=== PATIENT | female | born 1970 | race Caucasian/White ===

== ENCOUNTER 2019-02-21 07:07 | Inpatient (IN) | payer MEDICAID ==
[~2019-02-21] VITALS: Ht 170.2 cm; Wt 68.6 kg
[~2019-02-21 07:07] MED LIST: AMLO10 PO; BIRTH CONTROL; CHLO25 PO; CIPR500 PO; CYAN1000 PO; CYAN500 PO; FOLI1 PO; IBUP400 PO; IBUP800 PO; IRON150C PO; LAXATIVE; MEDR10 PO; MULVIT PO; ONDA4 PO; POTCHL20ER PO; PROM25S PR; SULTRIDS PO
[2019-02-21 07:48] LABS: BASOPHILS ABSOLUTE AUTO 0.07 K/mm3 (0.00-0.23); BASOPHILS PERCENT AUTO 1 % (0-2); EOSINOPHILS ABSOLUTE AUTO 0.02 K/mm3 (0.00-0.68); EOSINOPHILS PERCENT AUTO 0 % (0-6); Hemoglobin 13.7 g/dL (11.5-16.0); IMMATURE GRAN ABSOLUTE AUTO 0.03 K/mm3 (0.00-0.10); IMMATURE GRAN PERCENT AUTO 0 % (0-1); LYMPHOCYTES ABSOLUTE AUTO 0.53 K/mm3 (0.84-5.20); LYMPHOCYTES PERCENT AUTO 7 % (21-46); MONOCYTES ABSOLUTE AUTO 0.77 K/mm3 (0.16-1.47); MONOCYTES PERCENT AUTO 10 % (4-13); Mean Corpuscular HGB 35.3 pg (26.0-34.0); Mean Corpuscular HGB Conc 34.3 g/dL (31.5-36.5); Mean Corpuscular Volume 103 fL (80-100); Mean Platelet Volume 12.8 fL (9.1-12.4); NEUTROPHILS ABSOLUTE AUTO 6.35 K/mm3 (1.96-9.15); NEUTROPHILS PERCENT AUTO 82 % (41-73); RDW Coefficient Variation 12.5 % (11.7-14.2); RDW Standard Deviation 47.7 fL (35.1-46.3); Red Blood Cell Count 3.88 M/mm3 (3.80-5.20); White Blood Cell Count 7.77 K/mm3 (4.00-11.30)
[2019-02-21 07:50] LABS: Platelet Count 43 K/mm3 (150-400)
[2019-02-21 08:30] LABS: Alanine Aminotransfer (ALT/SGP 109 U/L (12-78); Albumin, Blood 4.1 g/dL (3.4-5.0); Alk Phos 90 U/L (50-136); Anion Gap 9 mmol/L (6-16); Aspartate Aminotrans (AST/SGOT 287 U/L (12-37); Bilirubin, Total 1.4 mg/dL (0.1-1.0); Blood Urea Nitrogen 5 mg/dL (8-24); Bun/Creatinine Ratio 12.9 (12.0-20.0); CO2, Blood 25 mmol/L (21-32); Calcium, Blood 9.6 mg/dL (8.5-10.1); Chloride, Blood 98 mmol/L (98-108); Creatinine, Blood 0.39 mg/dL (0.40-1.00); Ethanol (Alcohol), Blood, Med <3 mg/dL; Globulin, Blood 4.1 g/dL (2.2-4.0); Glomerular Filtration Rate >60 (60-); Glucose, Blood 110 mg/dL (70-99); Potassium, Blood 3.7 mmol/L (3.5-5.5); Sodium, Blood 132 mmol/L (136-145); Total Protein, Blood 8.2 g/dL (6.4-8.2)
[2019-02-21 08:48] LABS: International Normalized Ratio 0.97; Prothrombin Time Results 10.3 Sec (9.7-11.5)
[2019-02-21 10:38] LABS: U Amphetamine Screen Not Detected; U Barbituate Screen Not Detected; U Benzodiazapine Screen Not Detected; U Buprenorphine Screen Not Detected; U Cannabinoids Screen Not Detected; U Cocaine Screen Not Detected; U Methadone Screen Not Detected; U Methamphetamine Screen Not Detected; U Opiates Screen Not Detected; U Oxycodone Screen Not Detected; U Phencyclidine Screen Not Detected; U Propoxyphene Screen Not Detected
[2019-02-21] MEDS ORDERED: Hair, Skin & N1 EACH PO (11:25)
[2019-02-21] MEDS ORDERED: IRON150C PO (11:25)
[2019-02-21] MEDS ORDERED: Vitamin C100 M1 PO (11:25)
--- NOTE | 2019-02-21 12:03 | NUR ---
ARRIVAL TO ICU 1115 - PT ARRIVES TO ICU AT THIS TIME FROM ED. SHE IS A/O X PERSON AND PLACE BUT NOT TO TIME. AMBULATED UNSTEADILY FROM STRETCHER TO BED. CURRENTLY HAS TREMORS IN ARMS AND IS SHAKY WHEN STANDING. CIWA 10. DENIES NAUSEA OR HALLUCINATIONS AT THIS TIME. C/O HEADACHE 04/24. PT GIVEN ATIVAN 1 MG GIVEN PRIOR TO ARRIVAL TO ICU. TEMP 100.0. BP STABLE. NSR, HR 80-90S. MIV NS INFUSION STARTED AT 200 ML/HR PER ORDER. PT WANTING TO SLEEP. BED ALARM ON AND CALL LIGHT WITHIN REACH. WILL CONTINUE TO MONITOR.
--- NOTE | 2019-02-21 16:04 | NUR ---
REASSESSMENT PT SLEEPING AND APPEARS COMFORTABLE. BOYFRIEND AT BEDSIDE. VSS. NSR, HR 70S AND BP STABLE. SEIZURE PADS IN PLACE ON BED. LIGHTS DIM IN ROOM SINCE PT HAS HEADACHE. CIWA 10. WILL CONTINUE TO MONITOR.
--- NOTE | 2019-02-21 17:48 | NUR ---
SHIFT SUMMARY PT ARRIVED IN ICU AT 1115. SINCE THEN, PT HAS BEEN SLEEPING EXCEPT WHEN VISITORS ARE IN ROOM. CIWA HAS BEEN 10 ENTIRE SHIFT. NO ATIVAN GIVEN THIS AFTERNOON. STATES HEADACHE HAS IMPROVED SOME. MIV NS INFUSED AT 100 ML/HR PER ORDER. PT NEEDS ASSISTANCE WHEN UP TO COMMODE. DENIES NAUSEA. VSS. PT VERBALIZED SHE AGREES TO DETOX FROM ALCOHOL. WILL GIVE BEDSIDE, HANDOFF REPORT TO NOC RN.
--- NOTE | 2019-02-21 19:15 | NUR ---
ASSUMED CARE ASSUMED CARE OF PATIENT. SLEEPING WHEN UNDISTURBED. ROUSES EASILY TO VERBAL STIMULI. ALERT AND ORIENTED EXCEPT TO DAY OF MONTH AND TIME OF DAY. CALM AND COOPERATIVE. FLAT AFFECT NOTED. SLOW VERBAL RESPONSE, BUT SPEECH IS CLEAR. MILD UPPER EXTREMITITY TREMORS NOTED. REPOSTIONS SELF IN BED WITHOUT DIFFICULTY AND UP TO BSC WITH STAND-BY ASSIST. DENIES C/O PAIN OR DISCOMFORT AT THIS TIME. MONITOR SHOWS NSR, RATE 70s. BP STABLE. REMAINS ON RA. VOIDING WITHOUT DIFFICULTY. DENIES C/O NAUSEA. NS INFUSING @ 200CC/HR PER ORDER. SEE SHIFT ASSESSMENT FOR FULL ASSESSMENT.
[2019-02-22 03:42] LABS: Alanine Aminotransfer (ALT/SGP 85 U/L (12-78); Albumin, Blood 3.9 g/dL (3.4-5.0); Albumin/Globulin Ratio 1.1 (0.8-1.8); Alk Phos 82 U/L (50-136); Anion Gap 9 mmol/L (6-16); Aspartate Aminotrans (AST/SGOT 158 U/L (12-37); Bilirubin, Total 1.3 mg/dL (0.1-1.0); Blood Urea Nitrogen 4 mg/dL (8-24); Bun/Creatinine Ratio 9.2 (12.0-20.0); CO2, Blood 28 mmol/L (21-32); Calcium, Blood 9.2 mg/dL (8.5-10.1); Chloride, Blood 102 mmol/L (98-108); Creatinine, Blood 0.43 mg/dL (0.40-1.00); Globulin, Blood 3.6 g/dL (2.2-4.0); Glomerular Filtration Rate >60 (60-); Glucose, Blood 90 mg/dL (70-99); Potassium, Blood 2.7 mmol/L (3.5-5.5); Sodium, Blood 139 mmol/L (136-145); Total Protein, Blood 7.5 g/dL (6.4-8.2)
--- NOTE | 2019-02-22 06:16 | NUR ---
SHIFT SUMMARY NO ACUTE CHANGES DURING NOC. PT SLEPT INTERMITTENTLY. CIWA SCORE BETWEEN 6-9. DENIES C/O HEADACHE OR OTHER DISCOMFORT. VSS. REMAINS ON RA. VOIDING WITHOUT DIFFICULTY. UP TO BSC WITH STAND-BY ASSIST WITHOUT DIFFICULTY. WILL REPORT TO DAY SHIFT RN WHEN AVAILABLE.
--- NOTE | 2019-02-22 07:49 | NUR ---
ASSUMED CARE PT. ALERT THIS AM, ORIENTED TO LOCATION, AND EVENT. COOPERATIVE WITH CARE AT THIS TIME. MINIMAL TREMORS NOTED. NEEDS STAND BY ASSIST. PT IMPULSIVE AT TIMES WITH QUICK MOVEMENTS, SHAKEY WHEN STANDING. PT. DENIES PAIN THIS AM. CURRENTLY SALINE LOCKED. PT. VSS THIS AM. AFEBRILE. CURRENTLY ON RA. NADN. CALL LIGHT IN REACH. REFRESHMENTS AT BEDSIDE. BED IN LOW POSITION WITH BED ALARM ON.
--- NOTE | 2019-02-22 11:18 | NUR ---
REPORT TO MEDICAL FLOOR RN. PT.TRANSFERRED TO ROOM 301.ABLE TO STAND AND TRANSFER SELF TO WHEELCHAIR. PT. BOYFRIEND AT BEDSIDE. ALL BELONGINGS TAKEN TO ROOM WITH PT.
--- NOTE | 2019-02-22 11:54 | NUR ---
PT TRANSFERED PT TRANSFERED AT 1110. PT IN STABLE CONDITION. PT & FAMILY ORIENTED TO ROOM. CASTRO PROVIDED & SECOND BAG OF IV POTASSIUM STARTED. WILL CONTINUE TO MONITOR.
--- NOTE | 2019-02-22 17:20 | NUR ---
SHIFT SUMMARY PT IN STABLE CONDITION WITH VSS. PT AMBULATING WITHIN ROOM INDEPENDENTLY. PT STATES SHE FEELS SHE IS GETTING STRONGER. NO OTHER CHANGES IN ASSESSMENT AT THIS TIME. CIWA'S DC'ED. PT DENIES PAIN & OTHER NEEDS AT THIS TIME. WILL CONTINUE TO MONITOR UNTIL TURNOVER IS COMPLETE.
--- NOTE | 2019-02-23 07:14 | NUR ---
SHIFT SUMMARY PT A/O INDEPENDENT IN ROOM. NO C/O PAIN. WORE SCD'S. CALL LIGHT IN REACH.
--- NOTE | 2019-02-23 11:18 | NUR ---
PT DISCHARGED PT DISCHARGED IN STABLE CONDITION & WITH VSS. PT EDUCATED ON DC INSTRUCTIONS & SENT WITH PT. PT REFUSED WHEELCHAIR & WALKED OUT OF FACILITY WITH HER BOYFRIEND. TO BE DRIVEN HOME BY HER BOYFRIEND. PT GIVEN INFO ON [employer] WITH DC.
== END 2019-02-23 11:09 | disposition home or self-care (01) | DRG 897 ==
LOC: ER 07:07 → ICUW 09:49 → MEDS 11:15 → ICUW 11:20 → MEDS 02-22 11:18 → ENPENDDIS 02-23 10:30 → MEDS 02-23 11:09
PROVIDERS: Emergency Medicine; ADMIT Hospitalist
DX: F10.231 Alcohol dependence with withdrawal delirium (principal); E87.1 Hypo-osmolality and hyponatremia; D69.6 Thrombocytopenia, unspecified; E87.6 Hypokalemia; F17.210 Nicotine dependence, cigarettes, uncomplicated; I10 Essential (primary) hypertension
CPT/HCPCS: 36415; 70450; 80053; 83735; 84132; 85025; 85610; 93005; 93010; 96365; 96366; 96375; 96376; 99285-25; G0480; J1650; J2060; J3411; J3475; J3480; J7030; J7042

== ENCOUNTER 2019-10-22 09:01 | Emergency (ER) | payer OTHER ==
[~2019-10-22] VITALS: Ht 175.3 cm; Wt 83.9 kg
[~2019-10-22 09:01] MED LIST changes: +Hair, Skin & N1 EACH PO; +Vitamin C100 M1 PO
[2019-10-22 10:21] LABS: BASOPHILS ABSOLUTE AUTO 0.08 K/mm3 (0.00-0.23); BASOPHILS PERCENT AUTO 2 % (0-2); EOSINOPHILS ABSOLUTE AUTO 0.09 K/mm3 (0.00-0.68); EOSINOPHILS PERCENT AUTO 2 % (0-6); Hematocrit 36.1 % (33.0-51.0); Hemoglobin 12.2 g/dL (11.5-16.0); IMMATURE GRAN ABSOLUTE AUTO 0.01 K/mm3 (0.00-0.10); IMMATURE GRAN PERCENT AUTO 0 % (0-1); LYMPHOCYTES ABSOLUTE AUTO 1.03 K/mm3 (0.84-5.20); LYMPHOCYTES PERCENT AUTO 22 % (21-46); MONOCYTES ABSOLUTE AUTO 0.58 K/mm3 (0.16-1.47); MONOCYTES PERCENT AUTO 12 % (4-13); Mean Corpuscular HGB 34.3 pg (26.0-34.0); Mean Corpuscular HGB Conc 33.8 g/dL (31.5-36.5); Mean Corpuscular Volume 101 fL (80-100); Mean Platelet Volume 10.6 fL (9.1-12.4); NEUTROPHILS ABSOLUTE AUTO 2.99 K/mm3 (1.96-9.15); NEUTROPHILS PERCENT AUTO 63 % (41-73); Platelet Count 76 K/mm3 (150-400); RDW Coefficient Variation 13.9 % (11.7-14.2); RDW Standard Deviation 51.8 fL (35.1-46.3); Red Blood Cell Count 3.56 M/mm3 (3.80-5.20); White Blood Cell Count 4.78 K/mm3 (4.00-11.30)
[2019-10-22 10:41] LABS: Alanine Aminotransfer (ALT/SGP 79 U/L (12-78); Albumin, Blood 4.3 g/dL (3.4-5.0); Albumin/Globulin Ratio 1.1 (0.8-1.8); Alk Phos 107 U/L (50-136); Anion Gap 8 mmol/L (6-16); Aspartate Aminotrans (AST/SGOT 189 U/L (12-37); Bilirubin, Total 0.3 mg/dL (0.1-1.0); Blood Urea Nitrogen 6 mg/dL (8-24); Bun/Creatinine Ratio 13.4 (12.0-20.0); CO2, Blood 28 mmol/L (21-32); Calcium, Blood 8.7 mg/dL (8.5-10.1); Chloride, Blood 102 mmol/L (98-108); Creatinine, Blood 0.45 mg/dL (0.40-1.00); Globulin, Blood 3.8 g/dL (2.2-4.0); Glomerular Filtration Rate >60 (60-); Glucose, Blood 91 mg/dL (70-99); Potassium, Blood 4.1 mmol/L (3.5-5.5); Sodium, Blood 138 mmol/L (136-145); Total Protein, Blood 8.1 g/dL (6.4-8.2)
[2019-10-22 10:44] LABS: Ethanol (Alcohol), Blood, Med 461 mg/dL
[2019-10-22] MEDS ORDERED: Ativan1 MG SL (11:33)
== END 2019-10-22 11:49 | disposition home or self-care (01) ==
LOC: ER 09:01
PROVIDERS: Emergency Medicine
DX: S01.81XA Laceration without foreign body of other part of head, initial encounter (principal); S00.12XA Contusion of left eyelid and periocular area, initial encounter; F10.129 Alcohol abuse with intoxication, unspecified; F17.210 Nicotine dependence, cigarettes, uncomplicated; Z23 Encounter for immunization; Z88.0 Allergy status to penicillin; W22.8XXA Striking against or struck by other objects, initial encounter
CPT/HCPCS: 36415; 70450; 70480; 80053; 85025; 90471; 90714; 93005; 93010; 99284-25; G0480

== ENCOUNTER 2020-04-13 04:58 | Emergency (ER) | payer OTHER ==
[~2020-04-13] VITALS: Ht 170.2 cm; Wt 79.4 kg
[~2020-04-13 04:58] MED LIST changes: +Ativan1 MG SL
== END 2020-04-13 06:25 | disposition home or self-care (01) ==
LOC: ER 04:58
DX: S09.90XA Unspecified injury of head, initial encounter (principal); F10.129 Alcohol abuse with intoxication, unspecified; I10 Essential (primary) hypertension; F17.210 Nicotine dependence, cigarettes, uncomplicated; Z88.0 Allergy status to penicillin; Z79.899 Other long term (current) drug therapy; W18.30XA Fall on same level, unspecified, initial encounter
CPT/HCPCS: 36415; 70450; 72125; 99284-25; G0480

== ENCOUNTER 2020-04-26 13:59 | Emergency (ER) | payer OTHER ==
[~2020-04-26] VITALS: Ht 170.2 cm; Wt 72.6 kg
[2020-04-26] MEDS ORDERED: LISI20 PO (14:49)
[2020-04-26] MEDS ORDERED: POTA8 (14:50)
[2020-04-26] MEDS ORDERED: CHLO25 PO (15:17)
== END 2020-04-26 15:49 | disposition home or self-care (01) ==
LOC: ER 13:59
DX: F10.10 Alcohol abuse, uncomplicated (principal); I10 Essential (primary) hypertension; Z88.0 Allergy status to penicillin; Z79.899 Other long term (current) drug therapy; F17.210 Nicotine dependence, cigarettes, uncomplicated
CPT/HCPCS: 96360; 99283-25; A9270-GY; J7030

== ENCOUNTER 2020-11-29 00:08 | Emergency (ER) | payer OTHER ==
[~2020-11-29] VITALS: Ht 170.2 cm; Wt 81.7 kg
[~2020-11-29 00:08] MED LIST changes: +LISI20 PO; +POTA8
[2020-11-29 00:34] LABS: BASOPHILS ABSOLUTE AUTO 0.03 K/mm3 (0.00-0.23); BASOPHILS PERCENT AUTO 0 % (0-2); EOSINOPHILS ABSOLUTE AUTO 0.02 K/mm3 (0.00-0.68); EOSINOPHILS PERCENT AUTO 0 % (0-6); Hematocrit 37.2 % (33.0-51.0); Hemoglobin 13.2 g/dL (11.5-16.0); IMMATURE GRAN ABSOLUTE AUTO 0.06 K/mm3 (0.00-0.10); IMMATURE GRAN PERCENT AUTO 1 % (0-1); LYMPHOCYTES ABSOLUTE AUTO 1.11 K/mm3 (0.84-5.20); LYMPHOCYTES PERCENT AUTO 10 % (21-46); MONOCYTES ABSOLUTE AUTO 0.83 K/mm3 (0.16-1.47); MONOCYTES PERCENT AUTO 7 % (4-13); Mean Corpuscular HGB 31.5 pg (26.0-34.0); Mean Corpuscular HGB Conc 35.5 g/dL (31.5-36.5); Mean Corpuscular Volume 89 fL (80-100); NEUTROPHILS ABSOLUTE AUTO 9.59 K/mm3 (1.96-9.15); NEUTROPHILS PERCENT AUTO 82 % (41-73); Platelet Count 85 K/mm3 (150-400); RDW Coefficient Variation 13.2 % (11.7-14.2); RDW Standard Deviation 43.2 fL (35.1-46.3); Red Blood Cell Count 4.19 M/mm3 (3.80-5.20); White Blood Cell Count 11.64 K/mm3 (4.00-11.30)
[2020-11-29 00:55] LABS: Alanine Aminotransfer (ALT/SGP 38 U/L (12-78); Albumin, Blood 4.2 g/dL (3.4-5.0); Albumin/Globulin Ratio 1.3 (0.8-1.8); Alk Phos 141 U/L (50-136); Anion Gap 17 mmol/L (6-16); Aspartate Aminotrans (AST/SGOT 86 U/L (12-37); Bilirubin, Total 0.9 mg/dL (0.1-1.0); Blood Urea Nitrogen 9 mg/dL (8-24); Bun/Creatinine Ratio 18.9 (12.0-20.0); CO2, Blood 26 mmol/L (21-32); Calcium, Blood 8.9 mg/dL (8.5-10.1); Chloride, Blood 81 mmol/L (98-108); Creatinine, Blood 0.48 mg/dL (0.40-1.00); Globulin, Blood 3.3 g/dL (2.2-4.0); Glomerular Filtration Rate >60 (60-); Glucose, Blood 85 mg/dL (70-99); Potassium, Blood 3.2 mmol/L (3.5-5.5); Sodium, Blood 124 mmol/L (136-145); Total Protein, Blood 7.5 g/dL (6.4-8.2)
[2020-11-29 03:30] LABS: Ethanol (Alcohol), Blood, Med 182 mg/dL
[2020-11-29] MEDS ORDERED: ONDA4ODT MM (03:45)
[2021-02-14] MEDS ORDERED: VITAMIN D5000 UNIT PO (09:53)
[2021-02-14] MEDS ORDERED: MULTIPLE VITAM1 EACH PO (09:53)
[2021-02-14] MEDS ORDERED: FOLI1 PO (09:54)
[2021-02-14] MEDS ORDERED: AMLO10 PO (09:54)
== END 2020-11-29 05:05 | disposition home or self-care (01) ==
LOC: ER 00:08
PROVIDERS: Emergency Medicine
DX: F10.20 Alcohol dependence, uncomplicated (principal); E87.1 Hypo-osmolality and hyponatremia; R11.2 Nausea with vomiting, unspecified; I10 Essential (primary) hypertension; F17.210 Nicotine dependence, cigarettes, uncomplicated; Z79.899 Other long term (current) drug therapy; Z88.0 Allergy status to penicillin
CPT/HCPCS: 80053; 85025; 93005; 93010; 96374; 96376; 99285-25; A9270; G0480; J2405; J7030

== ENCOUNTER 2021-02-21 06:38 | Day surgery (SDC) | payer OTHER ==
[~2021-02-21] VITALS: Ht 170.2 cm; Wt 82.8 kg
[~2021-02-21 06:38] MED LIST changes: +MULTIPLE VITAM1 EACH PO; +ONDA4ODT MM; +VITAMIN D5000 UNIT PO
[2021-02-21] MEDS ORDERED: LISI20 PO (07:49)
[2021-02-21] MEDS ORDERED: PRESERVISION A1 EAC1 PO (07:49)
--- NOTE | 2021-02-21 09:07 | NUR ---
02/21/21 0907 Amanda Brown 0.15ML OF EPI 1MG/ML ADDED TO 30ML OF BUPIVICAINE 0.5% TO FORM A SOLUTION OF BUPIVICAINE 0.5% WITH EPI 1:200,000.
== END 2021-02-21 12:25 | disposition home or self-care (01) ==
LOC: ORSCSDS 06:38
PROVIDERS: Orthopaedic Surgery
PROC: 0PSJ04Z Reposition Left Radius with Internal Fixation Device, Open Approach (ICD-10-PCS; principal; 2021-02-21 08:15)
DX: S52.572P Other intraarticular fracture of lower end of left radius, subsequent encounter for closed fracture with malunion (principal); Z87.891 Personal history of nicotine dependence; G40.909 Epilepsy, unspecified, not intractable, without status epilepticus; I10 Essential (primary) hypertension
CPT/HCPCS: C1713; J0171; J0690; J1100; J1885; J2250; J2405; J2704; J3010; J7120

== ENCOUNTER 2021-06-11 20:47 | Emergency (ER) | payer OTHER ==
[~2021-06-11] VITALS: Ht 170.2 cm; Wt 81.7 kg
[~2021-06-11 20:47] MED LIST changes: +PRESERVISION A1 EAC1 PO
== END 2021-06-11 21:39 | disposition left against medical advice (07) ==
LOC: ER 20:47
DX: R05 Cough (principal); Z53.21 Procedure and treatment not carried out due to patient leaving prior to being seen by health care provider; R68.83 Chills (without fever); R53.1 Weakness
CPT/HCPCS: 99282

== ENCOUNTER 2021-06-28 15:07 | Emergency (ER) | payer OTHER ==
[~2021-06-28] VITALS: Ht 170.2 cm; Wt 81.7 kg
[2021-06-28 15:56] LABS: BASOPHILS ABSOLUTE AUTO 0.05 K/mm3 (0.00-0.23); BASOPHILS PERCENT AUTO 1 % (0-2); EOSINOPHILS ABSOLUTE AUTO 0.01 K/mm3 (0.00-0.68); EOSINOPHILS PERCENT AUTO 0 % (0-6); Hematocrit 42.4 % (33.0-51.0); Hemoglobin 14.9 g/dL (11.5-16.0); IMMATURE GRAN ABSOLUTE AUTO 0.03 K/mm3 (0.00-0.10); IMMATURE GRAN PERCENT AUTO 0 % (0-1); LYMPHOCYTES PERCENT AUTO 15 % (21-46); MONOCYTES ABSOLUTE AUTO 0.82 K/mm3 (0.16-1.47); MONOCYTES PERCENT AUTO 9 % (4-13); Mean Corpuscular HGB 31.7 pg (26.0-34.0); Mean Corpuscular HGB Conc 35.1 g/dL (31.5-36.5); Mean Corpuscular Volume 90 fL (80-100); Mean Platelet Volume 10.2 fL (9.1-12.4); NEUTROPHILS ABSOLUTE AUTO 6.73 K/mm3 (1.96-9.15); NEUTROPHILS PERCENT AUTO 75 % (41-73); Platelet Count 132 K/mm3 (150-400); RDW Coefficient Variation 13.2 % (11.7-14.2); RDW Standard Deviation 44.1 fL (35.1-46.3); White Blood Cell Count 8.94 K/mm3 (4.00-11.30)
[2021-06-28 16:31] LABS: Alanine Aminotransfer (ALT/SGP 38 U/L (12-78); Albumin, Blood 4.1 g/dL (3.4-5.0); Albumin/Globulin Ratio 0.9 (0.8-1.8); Alk Phos 99 U/L (50-136); Anion Gap 18 mmol/L (6-16); Aspartate Aminotrans (AST/SGOT 68 U/L (12-37); Bilirubin, Total 0.9 mg/dL (0.1-1.0); Blood Urea Nitrogen 25 mg/dL (8-24); Bun/Creatinine Ratio 37.7 (12.0-20.0); CO2, Blood 21 mmol/L (21-32); Calcium, Blood 8.9 mg/dL (8.5-10.1); Chloride, Blood 88 mmol/L (98-108); Creatinine, Blood 0.66 mg/dL (0.40-1.00); Globulin, Blood 4.5 g/dL (2.2-4.0); Glomerular Filtration Rate >60 (60-); Glucose, Blood 95 mg/dL (70-99); Potassium, Blood 3.8 mmol/L (3.5-5.5); Sodium, Blood 127 mmol/L (136-145); Total Protein, Blood 8.6 g/dL (6.4-8.2)
[2021-06-28] MEDS ORDERED: ONDA4ODT MM (19:22)
[2021-06-28] MEDS ORDERED: CHLO25 PO (19:22)
== END 2021-06-28 19:35 | disposition home or self-care (01) ==
LOC: ER 15:07
PROVIDERS: Physician Assistant
DX: F10.139 Alcohol abuse with withdrawal, unspecified (principal); R11.2 Nausea with vomiting, unspecified; E86.0 Dehydration; F17.210 Nicotine dependence, cigarettes, uncomplicated; I10 Essential (primary) hypertension
CPT/HCPCS: 36415; 80053; 83690; 85025; 96361; 96374; 96375; 99284-25; A9270; G0480; J2060; J2405; J7030

== ENCOUNTER → 2022-07-09 | Outpatient (CLI) | payer OTHER ==
[2022-07-09 13:40] LABS: BASOPHILS ABSOLUTE AUTO 0.04 K/mm3 (0.00-0.23); BASOPHILS PERCENT AUTO 1 % (0-2); EOSINOPHILS ABSOLUTE AUTO 0.03 K/mm3 (0.00-0.68); EOSINOPHILS PERCENT AUTO 1 % (0-6); Hematocrit 40.8 % (33.0-51.0); Hemoglobin 14.2 g/dL (11.5-16.0); IMMATURE GRAN ABSOLUTE AUTO 0.02 K/mm3 (0.00-0.10); IMMATURE GRAN PERCENT AUTO 0 % (0-1); LYMPHOCYTES ABSOLUTE AUTO 1.94 K/mm3 (0.84-5.20); LYMPHOCYTES PERCENT AUTO 35 % (21-46); MONOCYTES ABSOLUTE AUTO 0.33 K/mm3 (0.16-1.47); MONOCYTES PERCENT AUTO 6 % (4-13); Mean Corpuscular HGB 33.1 pg (26.0-34.0); Mean Corpuscular HGB Conc 34.8 g/dL (31.5-36.5); Mean Corpuscular Volume 95 fL (80-100); NEUTROPHILS ABSOLUTE AUTO 3.23 K/mm3 (1.96-9.15); NEUTROPHILS PERCENT AUTO 58 % (41-73); RDW Coefficient Variation 13.3 % (11.7-14.2); RDW Standard Deviation 46.7 fL (35.1-46.3); Red Blood Cell Count 4.29 M/mm3 (3.80-5.20); White Blood Cell Count 5.59 K/mm3 (4.00-11.30)
[2022-07-09 13:52] LABS: Albumin/Globulin Ratio 1.1 (0.8-1.8); Bilirubin, Total 0.5 mg/dL (0.1-1.0); Bun/Creatinine Ratio 10.6 (12.0-20.0); Calcium, Blood 8.8 mg/dL (8.5-10.1); Creatinine, Blood 0.66 mg/dL (0.40-1.00); Globulin, Blood 3.8 g/dL (2.2-4.0); Potassium, Blood 3.7 mmol/L (3.5-5.5); Total Protein, Blood 7.8 g/dL (6.4-8.2)
[2022-07-09 14:46] LABS: Mean Platelet Volume 10.4 fL (9.1-12.4); Platelet Count 104 K/mm3 (150-400)
== END | disposition home or self-care (01) ==
LOC: LAB SHORT 13:33
PROVIDERS: Physician Assistant
DX: R35.81 Nocturnal polyuria (principal); R11.2 Nausea with vomiting, unspecified; R19.7 Diarrhea, unspecified
CPT/HCPCS: 80053; 85025; 87077; 87086; 87186

== ENCOUNTER 2022-08-25 23:40 | Observation (INO) | payer OTHER ==
[~2022-08-25] VITALS: Ht 170.2 cm; Wt 79.3 kg
[2022-08-25] MEDS ORDERED: Naltrexone HCl50 MG PO (23:55)
[2022-08-26 00:17] LABS: BASOPHILS ABSOLUTE AUTO 0.04 K/mm3 (0.00-0.23); BASOPHILS PERCENT AUTO 0 % (0-2); EOSINOPHILS PERCENT AUTO 1 % (0-6); Hemoglobin 13.4 g/dL (11.5-16.0); IMMATURE GRAN ABSOLUTE AUTO 0.06 K/mm3 (0.00-0.10); IMMATURE GRAN PERCENT AUTO 1 % (0-1); LYMPHOCYTES ABSOLUTE AUTO 2.32 K/mm3 (0.84-5.20); LYMPHOCYTES PERCENT AUTO 26 % (21-46); MONOCYTES ABSOLUTE AUTO 0.75 K/mm3 (0.16-1.47); MONOCYTES PERCENT AUTO 8 % (4-13); Mean Corpuscular HGB 33.6 pg (26.0-34.0); Mean Corpuscular HGB Conc 35.3 g/dL (31.5-36.5); Mean Corpuscular Volume 95 fL (80-100); Mean Platelet Volume 10.6 fL (9.1-12.4); NEUTROPHILS PERCENT AUTO 64 % (41-73); Platelet Count 123 K/mm3 (150-400); RDW Standard Deviation 42.1 fL (35.1-46.3); Red Blood Cell Count 3.99 M/mm3 (3.80-5.20); White Blood Cell Count 8.97 K/mm3 (4.00-11.30)
[2022-08-26 00:35] LABS: Albumin, Blood 3.9 g/dL (3.4-5.0); Albumin/Globulin Ratio 1.1 (0.8-1.8); Bilirubin, Total 0.7 mg/dL (0.1-1.0); Bun/Creatinine Ratio 17.6 (12.0-20.0); Calcium, Blood 9.3 mg/dL (8.5-10.1); Creatinine, Blood 0.51 mg/dL (0.40-1.00); Globulin, Blood 3.7 g/dL (2.2-4.0); Magnesium, Blood 1.9 mg/dL (1.6-2.4); Potassium, Blood 3.3 mmol/L (3.5-5.5); Total Protein, Blood 7.6 g/dL (6.4-8.2)
[2022-08-26 01:47] LABS: Base Excess Venous 0.5 mmol/L; Bicarbonate Venous 25.2 mmol/L (24.0-30.0); pH Blood Venous 7.45 (7.34-7.37)
[2022-08-26 05:31] LABS: BASOPHILS ABSOLUTE AUTO 0.03 K/mm3 (0.00-0.23); BASOPHILS PERCENT AUTO 0 % (0-2); EOSINOPHILS ABSOLUTE AUTO 0.04 K/mm3 (0.00-0.68); EOSINOPHILS PERCENT AUTO 0 % (0-6); Hematocrit 37.2 % (33.0-51.0); Hemoglobin 12.9 g/dL (11.5-16.0); IMMATURE GRAN ABSOLUTE AUTO 0.04 K/mm3 (0.00-0.10); IMMATURE GRAN PERCENT AUTO 0 % (0-1); LYMPHOCYTES ABSOLUTE AUTO 1.67 K/mm3 (0.84-5.20); LYMPHOCYTES PERCENT AUTO 18 % (21-46); MONOCYTES ABSOLUTE AUTO 0.64 K/mm3 (0.16-1.47); MONOCYTES PERCENT AUTO 7 % (4-13); Mean Corpuscular HGB 33.3 pg (26.0-34.0); Mean Corpuscular HGB Conc 34.7 g/dL (31.5-36.5); Mean Corpuscular Volume 96 fL (80-100); Mean Platelet Volume 10.5 fL (9.1-12.4); NEUTROPHILS ABSOLUTE AUTO 6.77 K/mm3 (1.96-9.15); NEUTROPHILS PERCENT AUTO 74 % (41-73); Platelet Count 116 K/mm3 (150-400); RDW Coefficient Variation 12.3 % (11.7-14.2); RDW Standard Deviation 43.4 fL (35.1-46.3); Red Blood Cell Count 3.87 M/mm3 (3.80-5.20); White Blood Cell Count 9.19 K/mm3 (4.00-11.30)
[2022-08-26 06:00] LABS: Albumin, Blood 3.7 g/dL (3.4-5.0); Albumin/Globulin Ratio 1.1 (0.8-1.8); Bilirubin, Total 0.7 mg/dL (0.1-1.0); Calcium, Blood 8.9 mg/dL (8.5-10.1); Creatinine, Blood 0.54 mg/dL (0.40-1.00); Globulin, Blood 3.5 g/dL (2.2-4.0); Potassium, Blood 3.1 mmol/L (3.5-5.5); Total Protein, Blood 7.2 g/dL (6.4-8.2)
--- NOTE | 2022-08-26 06:19 | NUR ---
SHIFT ASSESSMENT: PT. CAME IN OVERNIGHT FROM ED FOR ALCOHOL DETOX, UPON ASSESSMENT PT. SEEMS TO BE STABLE. VS ARE ALL WNL AND PT. IS NOT COMPLAINING OF ANY PAIN. PT. IS ON RA AND ALL OTHER ASSESSMENT FINDINGS ARE WNL. PT. RESTING IN BED WITH CALL LIGHT WITHIN REACH.
[2022-08-26 08:22] LABS: Bun/Creatinine Ratio 10.1 (12.0-20.0); Calcium, Blood 8.7 mg/dL (8.5-10.1); Creatinine, Blood 0.6 mg/dL (0.40-1.00); Potassium, Blood 3.4 mmol/L (3.5-5.5)
--- NOTE | 2022-08-26 10:39 | NUR ---
Am note Pt wakes easily to verbal stimuli; alert, oriented x4; calm and cooperative with care. CIWA 1, slight headache noted. Pt ind in room. Pt denies pain, chest pain/pressure, sob, nausea, dizziness and numb/tingling. Pt tele sinus 80's, bp stable. Ls clear t/o, spo2 >90% on ra. No serizures noted this am. Other vss. No other acute change snoted. Will continue to monitor.
[2022-08-26] MEDS ORDERED: B-1100 M1 PO (15:17)
--- NOTE | 2022-08-26 17:31 | NUR ---
Discharge Summary CIWA <8 t/o shift. No acute changes noted. Tele called with hr 150, checked on patient, pt reports coughing, notiifed Dr Alejandre, ok to continue with discharge. Pt and spouse educated on discharge instructions, follow up appointments and medications. Prescriptions sent to [facility]. Pt left on foot with spouse. Discharge instructions left in room, message left for patient to pickle sorter.
== END 2022-08-26 17:00 | disposition home or self-care (01) ==
LOC: ER 23:40 → PCU 08-26 03:58
PROVIDERS: Family Medicine Adult Medicine; Student in an Organized Health Care Education/Training Program; ADMIT Internal Medicine
DX: F10.139 Alcohol abuse with withdrawal, unspecified (principal); G40.89 Other seizures; Y90.0 Blood alcohol level of less than 20 mg/100 ml; I10 Essential (primary) hypertension; E87.6 Hypokalemia; D69.6 Thrombocytopenia, unspecified; Z88.0 Allergy status to penicillin
CPT/HCPCS: 36415; 80048; 80053; 82803; 83735; 85025; 93005; 93010; 96365; 96372; 99285-25; A9270; G0378; G0480; J1650; J3411; J3480; J7030; J7050

== ENCOUNTER 2023-06-04 22:25 | Emergency (ER) | payer OTHER ==
[~2023-06-04] VITALS: Ht 170.2 cm; Wt 81.7 kg
[~2023-06-04 22:25] MED LIST changes: +B-1100 M1 PO; +Naltrexone HCl50 MG PO
[2023-06-04 23:08] LABS: BASOPHILS ABSOLUTE AUTO 0.01 K/mm3 (0.00-0.23); BASOPHILS PERCENT AUTO 0 % (0-2); EOSINOPHILS ABSOLUTE AUTO 0.09 K/mm3 (0.00-0.68); EOSINOPHILS PERCENT AUTO 2 % (0-6); Hematocrit 33.1 % (33.0-51.0); IMMATURE GRAN ABSOLUTE AUTO 0.03 K/mm3 (0.00-0.10); IMMATURE GRAN PERCENT AUTO 1 % (0-1); LYMPHOCYTES ABSOLUTE AUTO 0.81 K/mm3 (0.84-5.20); LYMPHOCYTES PERCENT AUTO 16 % (21-46); MONOCYTES ABSOLUTE AUTO 0.78 K/mm3 (0.16-1.47); MONOCYTES PERCENT AUTO 16 % (4-13); Mean Corpuscular HGB Conc 36.3 g/dL (31.5-36.5); Mean Corpuscular Volume 91 fL (80-100); Mean Platelet Volume 12.4 fL (9.1-12.4); NEUTROPHILS ABSOLUTE AUTO 3.31 K/mm3 (1.96-9.15); NEUTROPHILS PERCENT AUTO 66 % (41-73); Platelet Count 52 K/mm3 (150-400); RDW Coefficient Variation 13.3 % (11.7-14.2); RDW Standard Deviation 45.1 fL (35.1-46.3); Red Blood Cell Count 3.64 M/mm3 (3.80-5.20); White Blood Cell Count 5.03 K/mm3 (4.00-11.30)
[2023-06-04 23:23] LABS: Ethanol (Alcohol), Blood, Med <3 mg/dL
[2023-06-04 23:24] LABS: Alanine Aminotransfer (ALT/SGP 88 U/L (12-78); Albumin, Blood 3.7 g/dL (3.4-5.0); Albumin/Globulin Ratio 1.1 (0.8-1.8); Alk Phos 102 U/L (50-136); Anion Gap 12 mmol/L (6-16); Aspartate Aminotrans (AST/SGOT 130 U/L (12-37); Bilirubin, Total 0.6 mg/dL (0.1-1.0); Blood Urea Nitrogen 8 mg/dL (8-24); Bun/Creatinine Ratio 16.8 (12.0-20.0); CO2, Blood 28 mmol/L (21-32); Chloride, Blood 85 mmol/L (98-108); Creatinine, Blood 0.48 mg/dL (0.40-1.00); Globulin, Blood 3.4 g/dL (2.2-4.0); Glomerular Filtration Rate 112 (60-); Glucose, Blood 138 mg/dL (70-99); Potassium, Blood 3.2 mmol/L (3.5-5.5); Sodium, Blood 125 mmol/L (136-145); Total Protein, Blood 7.1 g/dL (6.4-8.2)
[2023-06-05 02:15] VITALS: BP 148/116
== END 2023-06-05 02:15 | disposition home or self-care (01) ==
LOC: ER 22:25
PROVIDERS: Emergency Medicine
DX: R56.9 Unspecified convulsions (principal); E87.1 Hypo-osmolality and hyponatremia; D69.6 Thrombocytopenia, unspecified; Z88.0 Allergy status to penicillin; Z79.899 Other long term (current) drug therapy; I10 Essential (primary) hypertension; Z87.891 Personal history of nicotine dependence
CPT/HCPCS: 80053; 85025; 93005; 93010; 96360; 96361; 99284-25; A9270; G0480; J7030

== ENCOUNTER 2024-05-13 21:22 | Emergency (ER) | payer OTHER ==
[~2024-05-13] VITALS: Ht 170.2 cm; Wt 81.7 kg
[2024-05-13 22:16] VITALS: BP 131/93
[2024-05-13 22:38] LABS: BASOPHILS ABSOLUTE AUTO 0.07 K/mm3 (0.00-0.23); BASOPHILS PERCENT AUTO 1 % (0-2); EOSINOPHILS ABSOLUTE AUTO 0.09 K/mm3 (0.00-0.68); EOSINOPHILS PERCENT AUTO 2 % (0-6); Hematocrit 40.9 % (33.0-51.0); Hemoglobin 14.1 g/dL (11.5-16.0); IMMATURE GRAN ABSOLUTE AUTO 0.02 K/mm3 (0.00-0.10); IMMATURE GRAN PERCENT AUTO 0 % (0-1); LYMPHOCYTES ABSOLUTE AUTO 2.59 K/mm3 (0.84-5.20); LYMPHOCYTES PERCENT AUTO 46 % (21-46); MONOCYTES ABSOLUTE AUTO 0.47 K/mm3 (0.16-1.47); MONOCYTES PERCENT AUTO 8 % (4-13); Mean Corpuscular HGB Conc 34.5 g/dL (31.5-36.5); Mean Corpuscular Volume 96 fL (80-100); Mean Platelet Volume 9.6 fL (9.1-12.4); NEUTROPHILS ABSOLUTE AUTO 2.41 K/mm3 (1.96-9.15); NEUTROPHILS PERCENT AUTO 43 % (41-73); Platelet Count 147 K/mm3 (150-400); RDW Coefficient Variation 15.3 % (11.7-14.2); RDW Standard Deviation 54.2 fL (35.1-46.3); Red Blood Cell Count 4.27 M/mm3 (3.80-5.20); White Blood Cell Count 5.65 K/mm3 (4.00-11.30)
[2024-05-13 23:22] LABS: Albumin, Blood 3.9 g/dL (3.4-5.0); Albumin/Globulin Ratio 0.9 (0.8-1.8); Bilirubin, Total 0.3 mg/dL (0.1-1.0); Calcium, Blood 8.6 mg/dL (8.5-10.1); Creatinine, Blood 0.42 mg/dL (0.40-1.00); Globulin, Blood 4.2 g/dL (2.2-4.0); Potassium, Blood 3.7 mmol/L (3.5-5.5); Total Protein, Blood 8.1 g/dL (6.4-8.2)
[2024-05-14] MEDS ORDERED: GABA300 PO (00:09)
== END 2024-05-14 00:43 | disposition home or self-care (01) ==
LOC: ER 21:22
PROVIDERS: Student in an Organized Health Care Education/Training Program
DX: F10.229 Alcohol dependence with intoxication, unspecified (principal); I10 Essential (primary) hypertension; F17.200 Nicotine dependence, unspecified, uncomplicated; Z71.41 Alcohol abuse counseling and surveillance of alcoholic; Z79.899 Other long term (current) drug therapy; Z88.0 Allergy status to penicillin
CPT/HCPCS: 80053; 83690; 85025; 99285

== ENCOUNTER 2024-09-23 20:02 | Emergency (ER) | payer OTHER ==
[~2024-09-23] VITALS: Ht 170.2 cm; Wt 79.4 kg
[~2024-09-23 20:02] MED LIST changes: +AMLODIPINE BESYL5 MG PO; +ASPI81CH PO; +Acetaminophen650 M1 PO; +GABA300 PO
[2024-09-23 20:45] LABS: BASOPHILS ABSOLUTE AUTO 0.02 K/mm3 (0.00-0.23); BASOPHILS PERCENT AUTO 1 % (0-2); EOSINOPHILS ABSOLUTE AUTO 0.01 K/mm3 (0.00-0.68); EOSINOPHILS PERCENT AUTO 0 % (0-6); Hematocrit 36.7 % (33.0-51.0); Hemoglobin 13.3 g/dL (11.5-16.0); IMMATURE GRAN ABSOLUTE AUTO 0.02 K/mm3 (0.00-0.10); IMMATURE GRAN PERCENT AUTO 1 % (0-1); LYMPHOCYTES ABSOLUTE AUTO 0.73 K/mm3 (0.84-5.20); LYMPHOCYTES PERCENT AUTO 22 % (21-46); MONOCYTES ABSOLUTE AUTO 0.28 K/mm3 (0.16-1.47); MONOCYTES PERCENT AUTO 9 % (4-13); Mean Corpuscular HGB 32.7 pg (26.0-34.0); Mean Corpuscular HGB Conc 36.2 g/dL (31.5-36.5); Mean Corpuscular Volume 90 fL (80-100); Mean Platelet Volume 11.5 fL (9.1-12.4); NEUTROPHILS ABSOLUTE AUTO 2.24 K/mm3 (1.96-9.15); NEUTROPHILS PERCENT AUTO 68 % (41-73); Platelet Count 67 K/mm3 (150-400); RDW Coefficient Variation 13.4 % (11.7-14.2); RDW Standard Deviation 43.8 fL (35.1-46.3); Red Blood Cell Count 4.07 M/mm3 (3.80-5.20)
[2024-09-23 20:48] LABS: Source, Urine Clean Catch
[2024-09-23 20:54] LABS: Appearance, Urine Hazy (Clear); Bilirubin, Urine Neg (Neg); Blood, Urine 2+ (Neg); Color, Urine Yellow (P-Yellow); Glucose Qualitative, Urine Neg (Neg); Ketones, Urine 2+ (Neg); Leukocyte Esterase, Urine 2+ (Neg); Nitrite, Urine Neg (Neg); Protein, Urine 2+ (Neg); Specific Gravity, Urine 1.015 (1.003-1.022); Urobilinogen, Urine 3+ (Normal)
[2024-09-23] MEDS ORDERED: HYDHCL25 PO (20:59)
[2024-09-23 21:00] LABS: Bacteria Many /hpf; Red Blood Cells, Urine 0-2 /hpf (0-2); Squamous Epithelial Cells Mod /hpf (Few); Transitional Epithelial Cells Few /hpf (0-Rare)
[2024-09-23 21:01] LABS: Albumin, Blood 3.7 g/dL (3.4-5.0); Bilirubin, Total 2.3 mg/dL (0.1-1.0); Bun/Creatinine Ratio 9.2 (12.0-20.0); Calcium, Blood 10.2 mg/dL (8.5-10.1); Creatinine, Blood 0.65 mg/dL (0.40-1.00); Globulin, Blood 3.7 g/dL (2.2-4.0); Total Protein, Blood 7.4 g/dL (6.4-8.2)
[2024-09-23] MEDS ORDERED: Folic Acid 1 MG in NS 50 ML IV ONE (21:10)
[2024-09-23] MEDS ORDERED: Thiamine HCl 100 MG in NS 50 ML IV ONE (21:10)
[2024-09-23] MEDS ORDERED: NS 1,000 ML IV SCH (21:10)
[2024-09-23] MEDS ORDERED: Ondansetron HCl 2 MG / ML 2ML Vial IV ONE (21:10)
[2024-09-23 21:24] LABS: Phosphorus, Blood 1.9 mg/dL (2.5-4.9)
[2024-09-23 21:33] LABS: U Amphetamine Screen Not Detected; U Barbituate Screen Not Detected; U Benzodiazapine Screen Not Detected; U Buprenorphine Screen Not Detected; U Cannabinoids Screen Not Detected; U Cocaine Screen Not Detected; U Methadone Screen Not Detected; U Methamphetamine Screen Not Detected; U Opiates Screen Not Detected; U Oxycodone Screen Not Detected; U Phencyclidine Screen Not Detected
[2024-09-23] MEDS ORDERED: Droperidol 5 mg/2 ml Vial IV ONE (23:10)
[2024-09-23] MEDS ORDERED: Potassium Chloride 20 MEQ TabCR PO ONE (23:15)
[2024-09-23] MEDS ORDERED: Potassium Chl 20MEQ/Water100ML 100 ML IV ONE (23:15)
[2024-09-23] MEDS ORDERED: Sodium Phosphate 15 MM in Dextrose 5% 250 ML IV ONE (23:20)
[2024-09-24 01:55] LABS: Albumin, Blood 3.4 g/dL (3.4-5.0); Albumin/Globulin Ratio 1.1 (0.8-1.8); Bilirubin, Total 2.1 mg/dL (0.1-1.0); Calcium, Blood 9.1 mg/dL (8.5-10.1); Creatinine, Blood 0.71 mg/dL (0.40-1.00); Globulin, Blood 3.2 g/dL (2.2-4.0); Potassium, Blood 3.5 mmol/L (3.5-5.5); Total Protein, Blood 6.6 g/dL (6.4-8.2)
[2024-09-24] MEDS ORDERED: CHLO25 PO (02:26)
[2024-09-24 02:30] VITALS: BP 140/98
== END 2024-09-24 03:22 | disposition home or self-care (01) ==
LOC: ER 20:02
PROVIDERS: Student in an Organized Health Care Education/Training Program
DX: E87.6 Hypokalemia (principal); E87.1 Hypo-osmolality and hyponatremia; E83.39 Other disorders of phosphorus metabolism; R74.01 Elevation of levels of liver transaminase levels; F10.939 Alcohol use, unspecified with withdrawal, unspecified; I10 Essential (primary) hypertension; Z87.891 Personal history of nicotine dependence; Z88.0 Allergy status to penicillin; Z79.82 Long term (current) use of aspirin; Z79.899 Other long term (current) drug therapy
CPT/HCPCS: 80053; 80320; 81001; 83690; 83735; 84100; 84703; 85025; 87086; 87147; 93005; 93010; 96365; 96366; 96367; 96368; 96375; 99285-25; A9270; J1790; J2405; J3411; J3480; J7030; J7060

== ENCOUNTER 2025-01-24 12:27 | Observation (INO) | payer OTHER ==
[~2025-01-24] VITALS: Ht 170.2 cm; Wt 75.6 kg
[~2025-01-24 12:27] MED LIST changes: +HYDHCL25 PO
[2025-01-24 13:45] LABS: BASOPHILS ABSOLUTE AUTO 0.01 K/mm3 (0.00-0.23); BASOPHILS PERCENT AUTO 0 % (0-2); EOSINOPHILS ABSOLUTE AUTO 0.01 K/mm3 (0.00-0.68); EOSINOPHILS PERCENT AUTO 0 % (0-6); Hematocrit 38.1 % (33.0-51.0); Hemoglobin 13.8 g/dL (11.5-16.0); IMMATURE GRAN ABSOLUTE AUTO 0.02 K/mm3 (0.00-0.10); IMMATURE GRAN PERCENT AUTO 0 % (0-1); LYMPHOCYTES ABSOLUTE AUTO 0.53 K/mm3 (0.84-5.20); LYMPHOCYTES PERCENT AUTO 9 % (21-46); MONOCYTES ABSOLUTE AUTO 0.43 K/mm3 (0.16-1.47); MONOCYTES PERCENT AUTO 7 % (4-13); Mean Corpuscular HGB 32.5 pg (26.0-34.0); Mean Corpuscular HGB Conc 36.2 g/dL (31.5-36.5); Mean Corpuscular Volume 90 fL (80-100); Mean Platelet Volume 12.1 fL (9.1-12.4); NEUTROPHILS ABSOLUTE AUTO 5.06 K/mm3 (1.96-9.15); NEUTROPHILS PERCENT AUTO 84 % (41-73); RDW Coefficient Variation 13.9 % (11.7-14.2); RDW Standard Deviation 45.5 fL (35.1-46.3); Red Blood Cell Count 4.24 M/mm3 (3.80-5.20); White Blood Cell Count 6.06 K/mm3 (4.00-11.30)
[2025-01-24 13:50] LABS: Platelet Count 47 K/mm3 (150-400)
[2025-01-24 14:11] LABS: Albumin, Blood 4.1 g/dL (3.4-5.0); Albumin/Globulin Ratio 1.1 (0.8-1.8); Bilirubin, Total 1.2 mg/dL (0.1-1.0); Bun/Creatinine Ratio 9.8 (12.0-20.0); Calcium, Blood 9.5 mg/dL (8.5-10.1); Creatinine, Blood 0.81 mg/dL (0.40-1.00); Globulin, Blood 3.8 g/dL (2.2-4.0); Potassium, Blood 2.3 mmol/L (3.5-5.5); Total Protein, Blood 7.9 g/dL (6.4-8.2)
[2025-01-24] MEDS ORDERED: NS 1,000 ML IV SCH ×2 (14:35→16:10)
[2025-01-24] MEDS ORDERED: Thiamine HCl 100 MG Tab PO ONE (14:35)
[2025-01-24] MEDS ORDERED: Potassium Chloride 40 MEQ in NS 250 ML IV ONE (14:35)
[2025-01-24] MEDS ORDERED: Potassium Chloride 20 MEQ/15 ML UDC PO STA (16:04)
[2025-01-24] MEDS ORDERED: Ondansetron HCl 2 MG / ML 2ML Vial IV PRN (16:10)
[2025-01-24] MEDS ORDERED: LORazepam 2 MG/ML 1ML Injection IV PRN (16:10)
[2025-01-24] MEDS ORDERED: ChlordiazePOXIDE 25 MG Cap PO PRN (16:10)
[2025-01-24 17:36] LABS: Source, Urine Clean Catch
[2025-01-24 17:39] LABS: Appearance, Urine Hazy (Clear); Bilirubin, Urine Neg (Neg); Blood, Urine 1+ (Neg); Color, Urine Yellow (P-Yellow); Glucose Qualitative, Urine Neg (Neg); Ketones, Urine Neg (Neg); Leukocyte Esterase, Urine 2+ (Neg); Nitrite, Urine Neg (Neg); Protein, Urine 2+ (Neg); Urobilinogen, Urine 1+ (Normal)
[2025-01-24 17:48] LABS: Bacteria Few /hpf; Squamous Epithelial Cells Many /hpf (Few); Transitional Epithelial Cells Rare /hpf (0-Rare)
[2025-01-24] MEDS ORDERED: FLU VACC TS2024-25(6MOS UP)/PF 45 MCG/0.5 ML SYRINGE IM ONE (18:00)
[2025-01-24 18:03] VITALS: BP 124/91
--- NOTE | 2025-01-24 18:37 | NUR ---
SHIFT SUMMARY PT ADMITTED AT 1800. ORIENTED TO THE ROOM. CIWA COMPLETED. ADMISSION COMPLETE. PT EATING AND DRINKING WELL. AOX4. SBA TO THE BR. REPOSITIONS SELF IN BED. TELE IN PLACE. CALL LIGHT WITHIN REACH, BED LOCKED AND IN THE LOWEST POSITION. WILL REPORT TO ONCOMING NURSE.
[2025-01-24 19:06] LABS: Bun/Creatinine Ratio 11.8 (12.0-20.0); Calcium, Blood 9.3 mg/dL (8.5-10.1); Creatinine, Blood 0.76 mg/dL (0.40-1.00); Potassium, Blood 3.3 mmol/L (3.5-5.5)
[2025-01-24 19:29] VITALS: BP 119/76
--- NOTE | 2025-01-25 04:50 | NUR ---
SHIFT SUMMARY PT A&Ox4 AND PLEASNT. NO C/O PAIN. NS INFUSING AT 100ml/hr. PT UP TO BATHROOM WITH SBA T/O NIGHT. CIWA SCORES OF 0. NO EVENTS ON TELE. VSS. SCD's IN PLACE. BED IN LOWEST POSITION AND CALL LIGHT IN REACH.
[2025-01-25 05:20] VITALS: BP 138/94
[2025-01-25 05:59] LABS: Hematocrit 37.6 % (33.0-51.0); Mean Corpuscular HGB 32.3 pg (26.0-34.0); Mean Corpuscular HGB Conc 34.6 g/dL (31.5-36.5); Mean Corpuscular Volume 94 fL (80-100); Mean Platelet Volume 11.8 fL (9.1-12.4); Platelet Count 52 K/mm3 (150-400); RDW Coefficient Variation 14.4 % (11.7-14.2); RDW Standard Deviation 49.8 fL (35.1-46.3); Red Blood Cell Count 4.02 M/mm3 (3.80-5.20)
[2025-01-25] MEDS ORDERED: Pantoprazole Sodium 40 MG Tab PO SCH (06:00)
[2025-01-25 06:26] LABS: Albumin, Blood 3.6 g/dL (3.4-5.0); Albumin/Globulin Ratio 0.9 (0.8-1.8); Bilirubin, Total 1.2 mg/dL (0.1-1.0); Bun/Creatinine Ratio 14.9 (12.0-20.0); Calcium, Blood 9.4 mg/dL (8.5-10.1); Creatinine, Blood 0.74 mg/dL (0.40-1.00); Globulin, Blood 3.8 g/dL (2.2-4.0); Magnesium, Blood 2.5 mg/dL (1.6-2.4); Phosphorus, Blood 4.2 mg/dL (2.5-4.9); Potassium, Blood 2.6 mmol/L (3.5-5.5); Total Protein, Blood 7.4 g/dL (6.4-8.2)
[2025-01-25 07:32] VITALS: BP 136/99
[2025-01-25] MEDS ORDERED: Potassium Chloride 10 Meq Tablet SA PO STA (08:15)
[2025-01-25] MEDS ORDERED: Potassium Chloride 40 MEQ in NS 250 ML IV ONE (08:20)
[2025-01-25] MEDS ORDERED: Folic Acid 1 MG TAB PO SCH (09:00)
[2025-01-25] MEDS ORDERED: Thiamine HCl 100 MG Tab PO SCH (09:00)
[2025-01-25] MEDS ORDERED: Loperamide HCl 2 MG Cap PO PRN (12:05)
[2025-01-25 14:37] LABS: Campylobacter Sp Not Detected (NOT DETECT); Cryptosporidium Not Detected (NOT DETECT); Cyclospora Cayetanensis Not Detected (NOT DETECT); E. Coli O157 Not Detected (NOT DETECT); Entamoeba Histolytica Not Detected (NOT DETECT); Enteroaggregative E. coli-EAEC Not Detected (NOT DETECT); Enteropathogenic E. coli-EPEC Not Detected (NOT DETECT); Enterotoxigenic E. coli-ETEC Not Detected (NOT DETECT); Giardia Lamblia Not Detected (NOT DETECT); Plesiomonas Shigelloides Not Detected (NOT DETECT); Salmonella Sp Not Detected (NOT DETECT); Shiga Toxin-prod E. coli-STEC Not Detected (NOT DETECT); Shigella/Enteroin E. coli-EIEC Not Detected (NOT DETECT); Vibrio Cholerae Not Detected (NOT DETECT); Vibrio Sp Not Detected (NOT DETECT); Yersinia Enterocolitica Not Detected (NOT DETECT)
[2025-01-25 14:38] LABS: Adenovirus F 40/41 Not Detected (NOT DETECT); Astrovirus Not Detected (NOT DETECT); Norovirus GI/GII Not Detected (NOT DETECT); Rotavirus A Not Detected (NOT DETECT); Sapovirus Not Detected (NOT DETECT)
[2025-01-25] MEDS ORDERED: B-1100 M1 PO (16:44)
--- NOTE | 2025-01-25 18:13 | NUR ---
DISCHARGE NOTE PT DISCHARGED TO HOME, PICKED UP BY HER PARTNER. IV'S REMOVED. TELE RETURNED. DISCHARGE INFORMATION AND EDUCATION PROVIDED. MEDICATIONS FAXED TO THE PHARMACY OF HER CHOICE. TAKEN TO VEHICLE BY WHEELCHAIR. NO ACUTE CHANGES PRIOR TO DISCHARGE.
== END 2025-01-25 18:14 | disposition home or self-care (01) ==
LOC: ER 12:27 → ERHOLD 12:28 → MEDS 17:58
PROVIDERS: Student in an Organized Health Care Education/Training Program; ADMIT Internal Medicine
DX: E87.6 Hypokalemia (principal); F10.239 Alcohol dependence with withdrawal, unspecified; E87.1 Hypo-osmolality and hyponatremia; E86.0 Dehydration; I10 Essential (primary) hypertension; F32.A Depression, unspecified; D69.6 Thrombocytopenia, unspecified; Z87.891 Personal history of nicotine dependence; Z79.82 Long term (current) use of aspirin; Z79.899 Other long term (current) drug therapy; Z88.0 Allergy status to penicillin; Z90.49 Acquired absence of other specified parts of digestive tract; Z90.710 Acquired absence of both cervix and uterus
CPT/HCPCS: 36415; 70450; 71046; 80048; 80053; 80320; 81001; 83735; 84100; 84132; 84484; 85025; 85027; 87086; 87507; 93005; 93010; 96365; 96366; 96376; 99285-25; A9270; G0378; J3480; J7030; J7050